=== PATIENT | male | born 1990 | race Caucasian/White ===

== ENCOUNTER 2021-10-01 13:35 | Emergency (ER) | payer SELFPAY ==
[2021-10-01] MEDS ORDERED: CYCLOBENZAPRINE10 MG PO (17:17)
== END 2021-10-01 17:30 | disposition home or self-care (01) ==
LOC: ER1 13:35
DX: S86.911A Strain of unspecified muscle(s) and tendon(s) at lower leg level, right leg, initial encounter (principal); I10 Essential (primary) hypertension; Z88.0 Allergy status to penicillin; W19.XXXA Unspecified fall, initial encounter
CPT/HCPCS: 76882; 99283